=== PATIENT | female | born 1955 | race Caucasian/White ===

== ENCOUNTER 2024-04-03 10:42 | Emergency (ER) | payer MEDICARE, BC, SELFPAY ==
[2024-04-03 10:43] VITALS: BMI 28.3
[2024-04-03 10:57] VITALS: BP 154/86; PULSE 74; RESP 18; TEMP 36.9; O2SAT 99
--- NOTE | 2024-04-03 10:57 | PD.EDEAR ---
ED Ear RME/HPI General Chief complaint: Ear Stated complaint: R EAR ACHE Time Seen by Provider: 04/03/24 10:43 Arrival date/time: 04/03/24 10:42 68-year-old female presents to the emergency department complains of right-sided ear pain ongoing x 2 days patient reports no fever nausea or vomiting no headache dizziness or weakness Limitations: no limitations Related Data Home Medications ?Medication ?Instructions ?Recorded ?Confirmed levothyroxine 125 mcg tablet 125 mcg PO QDAY 09/09/20 05/31/23 paroxetine HCl 10 mg tablet (Paxil) 10 mg PO QDAY 09/09/20 05/31/23 benzonatate 100 mg capsule 100 mg PO QDAY 05/31/23 05/31/23 fluticasone propionate 230 2 inh inhalation BID 05/31/23 05/31/23 mcg-salmeterol 21 mcg/actuation HFA inhaler fluticasone propionate 230 2 puff inhalation BID 05/31/23 05/31/23 mcg-salmeterol 21 mcg/actuation HFA inhaler (Advair HFA) tezepelumab-ekko 210 mg/1.91 mL 110 mg subcut QMONTH 05/31/23 05/31/23 (110 mg/mL) subcutaneous syringe (Tezspire) tiotropium bromide 1.25 2 inh inhalation QDAY 05/31/23 05/31/23 mcg/actuation mist for inhalation (Spiriva Respimat) Previous Rx's ?Medication ?Instructions ?Recorded pantoprazole 40 mg tablet,delayed 40 mg PO BID #180 tabs 05/31/23 release (Protonix) amoxicillin 875 mg-potassium 1 tab PO BID 7 days #14 tabs 04/03/24 clavulanate 125 mg tablet ibuprofen 600 mg tablet 600 mg PO Q6H #30 tabs 04/03/24 jtkrrywh-xhzfxpqgt-juvbvsbec 3.5 4 drp otic (ear) QID 10 days #10 mL 04/03/24 mg-10,000 unit/mL-1 % ear drops,susp prednisone 10 mg tablet 30 mg (3 x 10 mg) PO BID 3 days 04/03/24 #18 tabs Allergies Allergy/AdvReac Type Severity Reaction Status Date / Time levofloxacin Allergy Severe DIZZY Verified 04/03/24 10:45 hydrocodone Allergy Unknown DIZZY Verified 04/03/24 10:45 Review of Systems Review of Systems Systems Reviewed: All systems reviewed, normal except as documented Constitutional Constitutional: Reports system reviewed and no additional complaints, except as documented, Denies fever(s) and Denies headache(s) Eyes Eyes: Reports system reviewed and no additional complaints, except as documented and Denies blurry vision ENT Ears, Nose, Mouth, and Throat: Reports system reviewed and no additional complaints, except as documented, Reports ear discharge, Reports otalgia, Denies headache(s), Denies nasal congestion and Denies nasal discharge Cardiovascular Cardiovascular: Reports system reviewed and no additional complaints, except as documented, Denies chest pain and Denies dyspnea Respiratory Respiratory: Reports system reviewed and no additional complaints, except as documented, Denies chest congestion, Denies cough and Denies dyspnea Gastrointestinal Gastrointestinal: Reports system reviewed and no additional complaints, except as documented and Denies abdominal pain Integumentary/Breasts Skin/Breast: Reports system reviewed and no additional complaints, except as documented and Denies rash Neurologic Neurologic: Reports system reviewed and no additional complaints, except as documented, Reports as per HPI and Denies headache(s) Past Medical History Past Medical History NEUROLOGIC: Negative Neurological Disorders or Seizures CARDIAC: Positive Cardiac Disorders (Non-cardiogenic chest pain) and Hypertension; Negative Congestive Heart Failure RESPIRATORY: Positive Asthma; Negative Chronic Obstructive Pulmonary Disease (COPD) GASTROINTESTINAL: Positive Gastrointestinal Disorders, Gastroesophageal Reflux Disease and Obesity GENITOURINARY: Negative Genitourinary Disorders or Renal Disease REPRODUCTIVE: Negative Pelvic Inflammatory Disease MUSCULOSKELETAL: Positive Carpal Tunnel Syndrome (left); Negative Musculoskeletal Disorders ENDOCRINE: Positive Endocrine Disorders, Hypoglycemia, Hyperthyroidism (on meds) and Hypothyroidism; Negative Diabetes Mellitus Type 1 or Diabetes Mellitus Type 2 HEMATOLOGIC: Negative Blood Disorders PSYCHO/SOCIAL: Positive Depression OTHER HISTORY: Negative Hospitalization, Falls, Blood Transfusions, Anesthesia Reactions or Cancer Surgical History SURGICAL: Positive Angiogram Social History SMOKING STATUS: Never smoker ED Exam General Limitations: Present no limitations General appearance: Present alert and in no apparent distress Head Head exam: Present atraumatic Eye Eye exam: Present normal appearance, PERRL and EOMI ENT ENT exam: Present mucous membranes moist and other (Right ear canal erythema, canal discharge) Neck Neck exam: Present normal inspection, full ROM and trachea midline Chest Chest inspection: Present normal inspection and symmetric chest wall rise Respiratory Respiratory exam: Present normal lung sounds bilaterally Cardiovascular Cardiovascular exam: Present regular rate, normal rhythm and normal heart sounds Abdominal Exam Abdominal exam: Present soft and normal bowel sounds Extremities Exam Extremities exam: Present normal inspection and full ROM Back Exam Back exam: Present normal inspection and full ROM Neurological Exam Neurological exam: Present alert, oriented X3 and CN II-XII intact Psychiatric Psychiatric exam: Present normal affect and normal mood Skin Skin exam: Present warm, dry, intact and normal color Course Quality Measures none Vital Signs Vital signs: Vital Signs Temperature 98.5 F 04/03/24 10:57 Pulse Rate 74 04/03/24 10:57 Respiratory Rate 18 04/03/24 10:57 Blood Pressure 154/86 H 04/03/24 10:57 Pulse Oximetry (%) 99 04/03/24 10:57 Oxygen Delivery Method Room Air 04/03/24 10:57 O2 saturation 99% room air within normal limits Ear Patient data External records reviewed:: [facility] previous records Clinical information provided by:: patient Social determinants that could affect healthcare access:: none Patient has the following chronic illnesses:: None How is presenting disease/condition affected by chronic disease/condition?: no chronic disease Evaluation data The following diagnostics were reviewed and interpreted by me:: other (specify) (N/A) Lab and/or radiology exams considered but not ordered:: Consider not ordered Interpretation Summary: N/A Medications / Prescriptions Medications or Prescriptions considered but not ordered:: Given Medication administrations:: Given Consultations Consultation(s) initiated? (list below): No Diagnosis Ear Differential Diagnosis: otitis externa and otitis media Most likely diagnosis given after review of the tests above:: Otitis media, externa Admission Indicated Admission indicated?: not indicated Admission Request Was there a request for admission?: No Disposition Plan Disposition Plan: Discharge Discharge Attestation Discharge Attestation: The patient and all family members were given an opportunity to ask questions and understood the discharge instructions. Discharge instructions specifically effects, indications for sooner follow up or return to the emergency department, and the expected course of current diagnosis. Patient condition: Stable Medical Decision Making MDM Narrative MDM Narrative: 68-year-old female presents to the emergency department complains of right-sided ear pain ongoing x 2 days patient reports no fever nausea or vomiting no headache dizziness or weakness On exam patient well-appearing patient does not appear ill or toxic patient does not appear in acute distress On exam patient appears to have otitis externa canal redness Patient will treat with course of antibiotics and pain medication Patient discharged home in no distress to follow-up with primary care doctor in the next 24 to 48 hours and for any worsening symptoms to return to the ER immediately Differential Diagnosis Differential Diagnosis: Otitis media, otitis externa, sinus infection Medical Records Medical records reviewed: Yes I reviewed the patient's medical records. Discharge Plan Plan Patient Disposition: HOME (Self Care) Disposition Comment: Stable Prescriptions/Referrals Prescriptions/Med Rec: New prednisone 10 mg tablet 30 mg PO BID 3 Days Qty: 18 0RF ibuprofen 600 mg tablet 600 mg PO Q6H Qty: 30 0RF amoxicillin-pot clavulanate 875-125 mg tablet 1 tab PO BID 7 Days Qty: 14 0RF nardgeti-dyllnjjol-TH 3.5-10,000-1 mg/mL-unit/mL-% drops,suspension 4 drp otic (ear) QID 10 Days Qty: 10 0RF No Action paroxetine HCl [Paxil] 10 mg Tablet 10 mg PO QDAY levothyroxine 125 mcg Tablet 125 mcg PO QDAY benzonatate 100 mg capsule 100 mg PO QDAY fluticasone propion-salmeterol [Advair HFA] 230-21 mcg/actuation HFA aerosol inhaler 2 puff INHALATION BID Patient Comments: INHALE 2 PUFFS BY MOUTH USING INHALER TWICE A DAY fluticasone propion-salmeterol 230-21 mcg/actuation HFA aerosol inhaler 2 inh INHALATION BID Patient Comments: INHALE 2 PUFFS BY MOUTH USING INHALER TWICE A DAY Spiriva Respimat 1.25 mcg/actuation mist 2 inh INHALATION QDAY Patient Comments: INHALE 2 PUFFS BY MOUTH ONCE DAILY DIRECTED FOR 30 DAYS Tezspire 210 mg/1.91 mL (110 mg/mL) syringe 110 mg SUBCUT QMONTH pantoprazole [Protonix] 40 mg Tablet,Delayed Release (Dr/Ec) 40 mg PO BID Qty: 180 0RF Problem List Clinical Impression: Otitis media Patient/Caregiver Discharge Instructions Education Materials: Anatomy of the Ear Additional Instructions: Please follow up with your primary care doctor in the next 24-48hrs for any worsening symptoms return here immediately Print Language: Czech Stand Alone Forms: Mary Award Info., Patient Portal Info Letter PA/ENVIRONMENTAL ECONOMIST Supervising Physician PA/NICOLE Supervising Physician: Dr. lujan
== END 2024-04-03 11:39 | disposition home or self-care (01) ==
LOC: SERX 11:05
PROVIDERS: Emergency Provider Emergency Medicine; PCP Specialist
DX: H66.91 Otitis media, unspecified, right ear (principal)
CPT/HCPCS: 99281

== ENCOUNTER → 2024-04-10 | Outpatient (CLI) | payer MEDICARE, SELFPAY ==
--- NOTE | 2024-04-10 14:26 | XR_ITS ---
Examination: Sinus series 4 views TECHNIQUE: Kanika Dumont lateral submentovertex sinus series 4 views Exam date and time: April 10, 2024 1452 hours INDICATIONS: Sinus pressure and pain headaches one week FINDINGS: Prominent opacity in the frontal ethmoid air cells Mild opacity left maxillary antrum No fluid levels No retention cysts Prominent hypertrophy inferior nasal turbinates IMPRESSION: Chronic frontal ethmoid left maxillary sinusitis
== END | disposition home or self-care (01) ==
PROVIDERS: PCP Specialist; Referring Provider Specialist; Visit Provider Specialist
DX: J32.8 Other chronic sinusitis (principal)
CPT/HCPCS: 70220

== ENCOUNTER → 2024-04-18 | Outpatient (CLI) | payer MEDICARE, SELFPAY ==
[2024-04-18 11:07] LABS: Free T4 (Free Thyroxine) 1.61 ng/dL (0.89-1.76); Thyroid Stimulating Hormone 0.06 uIU/mL (0.55-4.78)
== END | disposition home or self-care (01) ==
LOC: COPL 09:02
PROVIDERS: PCP Specialist; Referring Provider Specialist; Visit Provider Specialist
DX: E03.8 Other specified hypothyroidism (principal)
CPT/HCPCS: 36415; 84439; 84443

== ENCOUNTER → 2024-05-10 | Outpatient (CLI) | payer MEDICARE, SELFPAY ==
--- NOTE | 2024-05-10 10:45 | XR_ITS ---
Examination: Screening digital mammography, bilateral Computer aided detection 3-D breast Tomosynthesis, bilateral Date and time of exam: May 10, 2024 1118 hours Compared to mammograms dating to February 15, 2020 Indication: Screening Technique: Nonmagnified MLO, CC views of the breasts to been obtained, reconstructed from 3-D Tomosynthesis images. R2 computer aided detection program utilized for evaluation of suspicious masses and/or abnormal calcifications. 3-D Tomosynthesis images obtained. Findings: Scattered areas of fibroglandular density Implants appear intact Benign calcifications No interval suspicious masses, probable benign lymph nodes in the axillary regions both breasts Impression: BI-RADS category II: Benign Findings. Recommend 1 year follow-up mammogram. Recommend bilateral breast sonography to confirm normal axillary lymph nodes
== END | disposition home or self-care (01) ==
LOC: CDIM 10:52
PROVIDERS: Referring Provider Specialist; Visit Provider Specialist
DX: Z12.31 Encounter for screening mammogram for malignant neoplasm of breast (principal); R92.323 Mammographic fibroglandular density, bilateral breasts; R92.1 Mammographic calcification found on diagnostic imaging of breast
CPT/HCPCS: 77063; 77067

== ENCOUNTER → 2024-05-24 | Outpatient (CLI) | payer MEDICARE, BC, SELFPAY ==
--- NOTE | 2024-05-24 15:45 | XR_ITS ---
Examination: Breast ultrasound complete, bilateral Date and time of exam: May 24, 2024 1532 hours INDICATIONS: Probably benign multiple lymph nodes in the axillary regions on mammogram May 10, 2024 Technique: Real-time grayscale ultrasonographic imaging bilateral breasts, including all 4 quadrants as well as nipple retroareolar and axillary regions. Findings: No cystic or solid mass either breast Bilateral axillary lymph nodes which do not appear abnormal IMPRESSION: BI-RADS Category 2: Benign findings
== END | disposition home or self-care (01) ==
PROVIDERS: PCP Specialist; Referring Provider Specialist; Visit Provider Specialist
DX: D36.0 Benign neoplasm of lymph nodes (principal)
CPT/HCPCS: 76641

== ENCOUNTER → 2024-07-05 | Outpatient (CLI) | payer MEDICARE, BC, SELFPAY ==
[2024-07-05 10:54] LABS: Free T3 3.7 pg/mL (2.3-4.2); Free T4 (Free Thyroxine) 1.31 ng/dL (0.89-1.76)
== END | disposition home or self-care (01) ==
LOC: COPL 09:06
PROVIDERS: PCP Specialist; Referring Provider Specialist; Visit Provider Specialist
DX: E03.8 Other specified hypothyroidism (principal); E03.4 Atrophy of thyroid (acquired)
CPT/HCPCS: 36415; 84439; 84443; 84481

== ENCOUNTER → 2025-03-08 | Outpatient (CLI) | payer MEDICARE, BC, SELFPAY ==
--- NOTE | 2025-03-08 13:35 | XR_ITS ---
Examination: Duplex scan of the lower extremity, unilateral left Date and time of exam: March 08, 2025, 1402 hours INDICATIONS: Left calf pain beginning several months ago Technique: Duplex scan of the extremity veins using B-mode/grayscale imaging and Doppler spectral analysis and color flow Attention is directed to internal echogenicity, compression and augmentation involving these veins, color flow assessment, spectral analysis Findings: Major deep venous structures in the extremity demonstrate normal course and caliber. There is no evidence of deep vein thrombosis. Normal color flow and spectral analysis Impression: Negative for DVT..
== END | disposition home or self-care (01) ==
LOC: CDIM 12:04
PROVIDERS: PCP Specialist; Referring Provider Specialist; Visit Provider Specialist
DX: M79.662 Pain in left lower leg (principal)
CPT/HCPCS: 93971